=== PATIENT | female | born 1940 | race Caucasian/White ===

== ENCOUNTER 2021-01-07 11:35 | Outpatient (REF) | payer MEDICARE, SELFPAY ==
[2021-01-07 15:00] LABS: CDiff Gene PCR POSITIVE (Negative)
[2021-01-07 15:09] LABS: CDIFF Internal ctrl Dots and bkg OK (V); CDiff Toxin Negative (Negative)
== END 2021-01-07 11:36 | disposition home or self-care (01) ==
LOC: HO.10HDL 11:35
PROVIDERS: Visit Provider Internal Medicine
DX: Z00.01 Encounter for general adult medical examination with abnormal findings (principal); A04.71 Enterocolitis due to Clostridium difficile, recurrent; I10 Essential (primary) hypertension
CPT/HCPCS: 36415; 87324; 87493

== ENCOUNTER 2021-05-20 10:16 | Outpatient (REF) | payer MEDICARE, SELFPAY | END 2021-05-20 10:17 | disposition home or self-care (01) | LOC: HO.10HDL 10:16 | PROVIDERS: Visit Provider Internal Medicine | DX: I10 Essential (primary) hypertension (principal); N30.01 Acute cystitis with hematuria; R10.32 Left lower quadrant pain | CPT/HCPCS: 87086 ==

== ENCOUNTER 2021-06-06 07:14 | Outpatient (REF) | payer MEDICARE, SELFPAY ==
[2021-06-06 07:33] LABS: MANUAL DIFF FLAG NO
[2021-06-06 08:17] LABS: Basophils Percent Auto 0.7 % (0-2); Eosinophils Absolute Auto 0.2 X10*3/uL (0.0-0.4); Eosinophils Percent Auto 3.5 % (0-4); Hematocrit 42.7 % (37.0-47.0); Imm Gran Abs Auto 0.01 X10*3/uL (0.00-0.03); Imm Gran Pct Auto 0.2 % (0.0-0.4); Lymphocytes Absolute Auto 2.4 X10*3/uL (1.2-4.9); Lymphocytes Percent Auto 41.9 % (20-40); Mean Corpuscular HGB Conc 32.8 g/dl (31.0-35.0); Mean Corpuscular Volume 100.7 fL (80.0-98.0); Mean Platelet Volume 10.2 fL (9.4-12.3); Monocytes Absolute Auto 0.6 X10*3/uL (0.1-1.2); Monocytes Percent Auto 9.9 % (2-11); Neutrophils Absolute Auto 2.5 x10*3/uL (2.0-8.3); Neutrophils Percent Auto 43.8 % (45-73); Platelet Count 238 X10*3/uL (160-400); Red Blood Count 4.24 X10*6/uL (4.20-5.50); Red Cell Distribution Width 11.4 % (11.0-16.0); White Blood Count 5.7 X10*3/uL (4.8-10.8)
[2021-06-06 08:45] LABS: Alanine Aminotransferase 17 U/L (0-31); Albumin Level 3.7 g/dL (3.5-5.0); Alkaline Phosphatase 68 U/L (39-117); Anion Gap 10 (12-20); Aspartate Amino Transferase 20 U/L (5-31); Bilirubin Total 0.7 mg/dL (0.0-1.0); Blood Urea Nitrogen 16 mg/dL (9-16); Calcium 9.5 mg/dL (8.4-10.2); Carbon Dioxide 31 mmol/L (22-29); Chloride 106 mmol/L (96-108); Cholesterol 191 mg/dL; Estimated Glomerular Filt Rate > 60; Glucose Random 88 mg/dL (60-115); HDL Cholesterol 51 mg/dL; LDL Cholesterol Calculated 125 mg/dl; Potassium 4.9 mmol/L (3.3-5.1); Sodium 142 mmol/L (135-145); Total Protein 6.9 g/dL (6.5-8.0); Triglycerides 76 mg/dL
== END 2021-06-06 07:15 | disposition home or self-care (01) ==
LOC: HO.LAB 07:14
PROVIDERS: PCP Internal Medicine; Visit Provider Internal Medicine
DX: I12.9 Hypertensive chronic kidney disease with stage 1 through stage 4 chronic kidney disease, or unspecified chronic kidney disease (principal); N18.9 Chronic kidney disease, unspecified
CPT/HCPCS: 36415; 80053; 80061; 85025

== ENCOUNTER 2021-06-10 12:52 | Outpatient (REF) | payer MEDICARE, SELFPAY ==
--- NOTE | ~2021-06-10 | CT_ITS ---
EXAMINATION: CT ABDOMEN AND PELVIS WITH CONTRAST CLINICAL INFORMATION: Left lower quadrant pain. Rule out diverticulitis. COMPARISON: None TECHNIQUE: Multidetector volumetric images were obtained from the superior aspect of the liver through the pubic symphysis following administration 85 mL of Omnipaque 350 intravenous contrast. Sagittal and coronal reformatted images were obtained on the technologist's workstation. Oral contrast: Yes This CT examination was performed using dose optimization techniques as appropriate, variously including the following: *Automated exposure control *Adjustment of mA and/or kV according to patient size (this includes techniques or standardized protocols for targeted exams where dose is matched to indication/reason for exam; i.e. extremities or head) *Use of iterative reconstruction technique DLP: 267 mGy-cm FINDINGS: LUNG BASES: The visualized lung bases are unremarkable. LIVER, GALLBLADDER, AND BILIARY TREE: The liver is normal in size, shape, and attenuation. There is a small 4 mm low-attenuation lesion in the right lobe of the liver. This is difficult to characterize due to small size but may represent a cyst.. No focal other hepatic lesion or biliary ductal dilatation is present. The gallbladder has been removed. PANCREAS: Unremarkable. SPLEEN: Unremarkable. ADRENAL GLANDS: Unremarkable. KIDNEYS AND URETERS: The kidneys are normal in size, shape, and attenuation. No hydronephrosis, hydroureter, or calculi seen. No perinephric stranding. BLADDER: Unremarkable. GASTROINTESTINAL TRACT: There is mild diverticulosis of the colon. No evidence of diverticulitis is seen. The small and large bowel are otherwise unremarkable. The appendix is unremarkable. ABDOMINAL WALL: No significant hernia is appreciated. LYMPH NODES: Normal. VASCULAR: Unremarkable. PELVIC VISCERA: There is a 3 cm right ovarian cyst. Left adnexa is unremarkable. There is low-attenuation seen centrally in the uterus suggestive of endometrial fluid or thickening OSSEOUS STRUCTURES: There are degenerative changes of the spine and hip joints.. CT/CT abdomen pelvis w con IMPRESSION: Diverticulosis of the colon. No evidence of diverticulitis. 3 cm right adnexal cyst. Endometrial fluid or thickening. Follow-up pelvic ultrasound recommended. Fleischner guidelines were followed.
[2021-06-10] MEDS: iohexoL 350 MG/ML 100 ML INFUS..BTL IV (15:26)
== END 2021-06-10 12:53 | disposition home or self-care (01) ==
LOC: HO.CT 12:52
PROVIDERS: PCP Internal Medicine; Visit Provider Internal Medicine
DX: R10.32 Left lower quadrant pain (principal)
CPT/HCPCS: 74177; Q9967

== ENCOUNTER 2021-07-03 09:41 | Outpatient (REF) | payer MEDICARE, SELFPAY ==
[2021-07-04 09:27] LABS: CA 125 New Method 11 U/mL (<35); CA-125 8 U/mL (<35)
== END 2021-07-03 09:42 | disposition home or self-care (01) ==
LOC: HO.10HDL 09:41
PROVIDERS: Visit Provider Internal Medicine
DX: N83.8 Other noninflammatory disorders of ovary, fallopian tube and broad ligament (principal)
CPT/HCPCS: 36415; 86304

== ENCOUNTER 2021-07-24 14:13 | Outpatient (REF) | payer MEDICARE, SELFPAY ==
--- NOTE | ~2021-07-24 | US_ITS ---
EXAMINATION: US PELVIS CLINICAL INFORMATION: Disorder of uterus. Follow-up endometrial thickening or fluid seen on CT scan. COMPARISON: CT of the abdomen and pelvis 06/10/2021 TECHNIQUE: Ultrasound of the pelvis is performed using both transabdominal and transvaginal transducers along with Doppler. Transvaginal imaging is performed due to inadequate visualization transabdominally. FINDINGS: The uterus is anteverted and measures 6.6 x 2.9 x 4 cm in dimension. The endometrium appears thickened measuring 1.3 cm. No focal uterine lesion is seen. The right ovary is seen transabdominally only. The right ovary is enlarged and measures 4.3 x 3.2 x 3.8 cm. There is a 2.8 x 3.3 x 2.8 cm right ovarian cyst. The left ovary is normal-appearing and measures 2 x 1.1 x 1.1 cm. There is no fluid in the pelvis. US/US pelvic and transvaginal IMPRESSION: Abnormally thickened endometrium measuring 1.3 cm. 2.8 x 3.3 x 2.8 cm right ovarian cyst. [employer] consultation recommended.
== END 2021-07-24 14:14 | disposition home or self-care (01) ==
LOC: HO.US 14:13
PROVIDERS: PCP Internal Medicine; Visit Provider Internal Medicine
DX: N83.8 Other noninflammatory disorders of ovary, fallopian tube and broad ligament (principal)
CPT/HCPCS: 76830; 76856

== ENCOUNTER 2021-10-01 06:57 | Outpatient (REF) | payer MEDICARE, SELFPAY ==
[2021-10-01 07:15] LABS: MANUAL DIFF FLAG NO
[2021-10-01 07:44] LABS: Basophils Percent Auto 0.5 % (0-2); Eosinophils Absolute Auto 0.2 X10*3/uL (0.0-0.4); Eosinophils Percent Auto 2.6 % (0-4); Hematocrit 42.6 % (37.0-47.0); Imm Gran Abs Auto 0.01 X10*3/uL (0.00-0.03); Imm Gran Pct Auto 0.2 % (0.0-0.4); Lymphocytes Absolute Auto 2.1 X10*3/uL (1.2-4.9); Lymphocytes Percent Auto 37.5 % (20-40); Mean Corpuscular HGB Conc 32.9 g/dl (31.0-35.0); Mean Corpuscular Hemoglobin 32.6 pg (27.0-33.0); Mean Corpuscular Volume 99.1 fL (80.0-98.0); Monocytes Absolute Auto 0.6 X10*3/uL (0.1-1.2); Monocytes Percent Auto 10.4 % (2-11); Neutrophils Absolute Auto 2.8 x10*3/uL (2.0-8.3); Neutrophils Percent Auto 48.8 % (45-73); Platelet Count 153 X10*3/uL (160-400); Red Cell Distribution Width 11.4 % (11.0-16.0); White Blood Count 5.7 X10*3/uL (4.8-10.8)
[2021-10-01 08:36] LABS: Alanine Aminotransferase 15 U/L (0-31); Alkaline Phosphatase 77 U/L (39-117); Anion Gap 10 (12-20); Aspartate Amino Transferase 19 U/L (5-31); Bilirubin Total 0.7 mg/dL (0.0-1.0); Blood Urea Nitrogen 18 mg/dL (9-16); Calcium 9.4 mg/dL (8.4-10.2); Carbon Dioxide 28 mmol/L (22-29); Chloride 107 mmol/L (96-108); Cholesterol 182 mg/dL; Estimated Glomerular Filt Rate 55; Glucose Random 90 mg/dL (60-115); HDL Cholesterol 56 mg/dL; LDL Cholesterol Calculated 110 mg/dl; Potassium 4.2 mmol/L (3.3-5.1); Sodium 141 mmol/L (135-145); Total Protein 7.1 g/dL (6.5-8.0); Triglycerides 80 mg/dL
== END 2021-10-01 06:58 | disposition home or self-care (01) ==
LOC: HO.LAB 06:57
PROVIDERS: PCP Internal Medicine; Visit Provider Internal Medicine
DX: I12.9 Hypertensive chronic kidney disease with stage 1 through stage 4 chronic kidney disease, or unspecified chronic kidney disease (principal); N18.9 Chronic kidney disease, unspecified
CPT/HCPCS: 36415; 80053; 80061; 85025

== ENCOUNTER 2021-12-21 09:00 | Outpatient (REF) | payer MEDICARE, SELFPAY ==
[2021-12-21 12:50] LABS: CDiff Gene PCR NEGATIVE (Negative)
== END 2021-12-21 09:01 | disposition home or self-care (01) ==
LOC: HO.LNP 09:00
PROVIDERS: Visit Provider Internal Medicine
DX: R19.7 Diarrhea, unspecified (principal)
CPT/HCPCS: 87493

== ENCOUNTER 2022-10-08 09:42 | Outpatient (REF) | payer MEDICARE, SELFPAY | END 2022-10-08 09:43 | disposition home or self-care (01) | LOC: HO.LAB 09:42 | PROVIDERS: PCP Internal Medicine; Visit Provider Internal Medicine | DX: I10 Essential (primary) hypertension (principal) | CPT/HCPCS: 36415; 80053 ==

== ENCOUNTER 2023-01-07 06:53 | Outpatient (REF) | payer MEDICARE, SELFPAY ==
[2023-01-07 07:02] LABS: MANUAL DIFF FLAG NO
[2023-01-07 07:21] LABS: Basophils Percent Auto 0.5 % (0-2); Eosinophils Absolute Auto 0.2 X10*3/uL (0.0-0.4); Eosinophils Percent Auto 2.6 % (0-4); Hematocrit 39.8 % (37.0-47.0); Hemoglobin 13.2 g/dl (12.0-16.0); Imm Gran Abs Auto 0.02 X10*3/uL (0.00-0.03); Imm Gran Pct Auto 0.3 % (0.0-0.4); Lymphocytes Absolute Auto 2.1 X10*3/uL (1.2-4.9); Mean Corpuscular HGB Conc 33.2 g/dl (31.0-35.0); Mean Corpuscular Hemoglobin 33.1 pg (27.0-33.0); Mean Corpuscular Volume 99.7 fL (80.0-98.0); Mean Platelet Volume 9.5 fL (9.4-12.3); Monocytes Absolute Auto 0.7 X10*3/uL (0.1-1.2); Monocytes Percent Auto 11.6 % (2-11); Neutrophils Absolute Auto 2.8 x10*3/uL (2.0-8.3); Platelet Count 177 X10*3/uL (160-400); Red Blood Count 3.99 X10*6/uL (4.20-5.50); Red Cell Distribution Width 11.4 % (11.0-16.0); White Blood Count 5.8 X10*3/uL (4.8-10.8)
[2023-01-07 08:15] LABS: Alanine Aminotransferase 12 U/L (0-31); Albumin Level 3.8 g/dL (3.5-5.0); Alkaline Phosphatase 61 U/L (39-117); Anion Gap 9 (12-20); Aspartate Amino Transferase 19 U/L (5-31); Bilirubin Total 0.5 mg/dL (0.0-1.0); Blood Urea Nitrogen 15 mg/dL (9-16); Calcium 9.4 mg/dL (8.4-10.2); Carbon Dioxide 28 mmol/L (22-29); Chloride 108 mmol/L (96-108); Cholesterol 181 mg/dL (<200); Estimated Glomerular Filt Rate > 60; Glucose Random 86 mg/dL (60-115); HDL Cholesterol 60 mg/dL (>40); LDL Cholesterol Calculated 108 mg/dL (<100); Potassium 4.2 mmol/L (3.3-5.1); Sodium 141 mmol/L (135-145); Total Protein 6.6 g/dL (6.5-8.0); Triglycerides 67 mg/dL (<150)
[2023-01-07 08:33] LABS: Vitamin D 25-OH Total 20.5 ng/mL (>30)
== END 2023-01-07 06:54 | disposition home or self-care (01) ==
LOC: HO.LAB 06:53
PROVIDERS: PCP Internal Medicine; Visit Provider Internal Medicine
DX: I10 Essential (primary) hypertension (principal); M81.8 Other osteoporosis without current pathological fracture; N64.4 Mastodynia
CPT/HCPCS: 36415; 80053; 80061; 82306; 85025

== ENCOUNTER 2023-07-13 06:50 | Outpatient (REF) | payer MEDICARE, SELFPAY ==
[2023-07-13 08:00] LABS: Alanine Aminotransferase 14 U/L (0-31); Albumin Level 3.7 g/dL (3.5-5.0); Alkaline Phosphatase 65 U/L (39-117); Anion Gap 9 (12-20); Aspartate Amino Transferase 19 U/L (5-31); Bilirubin Total 0.7 mg/dL (0.0-1.0); Blood Urea Nitrogen 21 mg/dL (9-16); Calcium 9.2 mg/dL (8.4-10.2); Carbon Dioxide 29 mmol/L (22-29); Chloride 108 mmol/L (96-108); Estimated Glomerular Filt Rate > 60; Glucose Random 86 mg/dL (60-115); Potassium 4.2 mmol/L (3.3-5.1); Sodium 142 mmol/L (135-145); Total Protein 7.1 g/dL (6.5-8.0)
== END 2023-07-13 06:51 | disposition home or self-care (01) ==
LOC: HO.LAB 06:50
PROVIDERS: PCP Internal Medicine; Visit Provider Internal Medicine
DX: E55.9 Vitamin D deficiency, unspecified (principal); I10 Essential (primary) hypertension
CPT/HCPCS: 36415; 80053

== ENCOUNTER 2024-01-13 06:21 | Outpatient (REF) | payer MEDICARE, SELFPAY ==
[2024-01-13 09:56] LABS: MANUAL DIFF FLAG NO
[2024-01-13 10:12] LABS: Basophils Percent Auto 0.5 % (0-2); Eosinophils Absolute Auto 0.2 X10*3/uL (0.0-0.4); Eosinophils Percent Auto 3.5 % (0-4); Hematocrit 40.1 % (37.0-47.0); Hemoglobin 13.1 g/dl (12.0-16.0); Imm Gran Abs Auto 0.01 X10*3/uL (0.00-0.03); Imm Gran Pct Auto 0.2 % (0.0-0.4); Lymphocytes Absolute Auto 2.4 X10*3/uL (1.2-4.9); Lymphocytes Percent Auto 42.6 % (20-40); Mean Corpuscular HGB Conc 32.7 g/dl (31.0-35.0); Mean Corpuscular Hemoglobin 32.8 pg (27.0-33.0); Mean Corpuscular Volume 100.5 fL (80.0-98.0); Mean Platelet Volume 10.4 fL (9.4-12.3); Monocytes Absolute Auto 0.7 X10*3/uL (0.1-1.2); Monocytes Percent Auto 11.8 % (2-11); Neutrophils Absolute Auto 2.4 x10*3/uL (2.0-8.3); Neutrophils Percent Auto 41.4 % (45-73); Platelet Count 185 X10*3/uL (160-400); Red Blood Count 3.99 X10*6/uL (4.20-5.50); Red Cell Distribution Width 11.9 % (11.0-16.0); White Blood Count 5.7 X10*3/uL (4.8-10.8)
[2024-01-13 10:23] LABS: Alanine Aminotransferase 17 U/L (0-31); Albumin Level 3.8 g/dL (3.5-5.0); Alkaline Phosphatase 64 U/L (39-117); Anion Gap 10 (12-20); Aspartate Amino Transferase 20 U/L (5-31); Bilirubin Total 0.5 mg/dL (0.0-1.0); Blood Urea Nitrogen 15 mg/dL (9-16); Calcium 9.3 mg/dL (8.4-10.2); Carbon Dioxide 28 mmol/L (22-29); Chloride 110 mmol/L (96-108); Cholesterol 169 mg/dL (<200); Estimated Glomerular Filt Rate > 60; Glucose Random 81 mg/dL (60-115); HDL Cholesterol 58 mg/dL (>40); LDL Cholesterol Calculated 98 mg/dL (<100); Sodium 144 mmol/L (135-145); Total Protein 6.7 g/dL (6.5-8.0); Triglycerides 66 mg/dL (<150)
[2024-01-13 10:45] LABS: Vitamin D 25-OH Total 64.6 ng/mL (>30)
== END 2024-01-13 06:22 | disposition home or self-care (01) ==
LOC: HO.HMGCLDS 06:21
PROVIDERS: PCP Internal Medicine; Visit Provider Internal Medicine
DX: E55.9 Vitamin D deficiency, unspecified (principal); I10 Essential (primary) hypertension; R45.4 Irritability and anger; Z68.23 Body mass index [BMI] 23.0-23.9, adult; Z74.8 Other problems related to care provider dependency
CPT/HCPCS: 36415; 80053; 80061; 82306; 85025

== ENCOUNTER 2024-07-08 07:18 | Outpatient (REF) | payer MEDICARE, SELFPAY ==
[2024-07-08 10:12] LABS: MANUAL DIFF FLAG NO
[2024-07-08 10:17] LABS: Basophils Percent Auto 0.4 % (0-2); Eosinophils Absolute Auto 0.2 X10*3/uL (0.0-0.4); Eosinophils Percent Auto 2.8 % (0-4); Hematocrit 39.1 % (37.0-47.0); Imm Gran Abs Auto 0.01 X10*3/uL (0.00-0.03); Imm Gran Pct Auto 0.2 % (0.0-0.4); Lymphocytes Absolute Auto 1.7 X10*3/uL (1.2-4.9); Lymphocytes Percent Auto 29.9 % (20-40); Mean Corpuscular HGB Conc 33.2 g/dl (31.0-35.0); Mean Corpuscular Volume 99.2 fL (80.0-98.0); Mean Platelet Volume 10.3 fL (9.4-12.3); Monocytes Absolute Auto 0.5 X10*3/uL (0.1-1.2); Monocytes Percent Auto 9.3 % (2-11); Neutrophils Absolute Auto 3.3 x10*3/uL (2.0-8.3); Neutrophils Percent Auto 57.4 % (45-73); Platelet Count 185 X10*3/uL (160-400); Red Blood Count 3.94 X10*6/uL (4.20-5.50); Red Cell Distribution Width 11.6 % (11.0-16.0); White Blood Count 5.7 X10*3/uL (4.8-10.8)
[2024-07-08 11:10] LABS: Folate 13.3 ng/mL (> or = 4.0); Vitamin B12 499 pg/mL (200-900)
[2024-07-08 11:15] LABS: Alanine Aminotransferase 17 U/L (0-31); Albumin Level 3.8 g/dL (3.5-5.0); Alkaline Phosphatase 70 U/L (39-117); Anion Gap 11 (12-20); Aspartate Amino Transferase 25 U/L (5-31); Bilirubin Total 0.6 mg/dL (0.0-1.0); Blood Urea Nitrogen 19 mg/dL (9-16); Calcium 9.3 mg/dL (8.4-10.2); Carbon Dioxide 24 mmol/L (22-29); Chloride 112 mmol/L (96-108); Estimated Glomerular Filt Rate > 60; Glucose Random 90 mg/dL (60-115); Potassium 4.3 mmol/L (3.3-5.1); Sodium 143 mmol/L (135-145); Total Protein 6.7 g/dL (6.5-8.0)
== END 2024-07-08 07:19 | disposition home or self-care (01) ==
LOC: HO.HMGCLDS 07:18
PROVIDERS: PCP Internal Medicine; Visit Provider Internal Medicine
DX: I10 Essential (primary) hypertension (principal); Z13.31 Encounter for screening for depression; Z68.24 Body mass index [BMI] 24.0-24.9, adult
CPT/HCPCS: 36415; 80053; 82607; 82746; 85025

== ENCOUNTER 2024-11-04 07:45 | Outpatient (REF) | payer MEDICARE, SELFPAY ==
--- OUTSIDE RECORDS SUMMARY | 2024-11-04 07:47 | XMS_ITS | Clinical Summary ---
Author Organization [facility] Address [address] [place] [address] Phone Care Team Providers Care Director Of Partner Marketing Name Role Phone Yelena García MD Primary Care Provider [phone] Allergies No known active allergies Medications lisinopriL (PRINIVIL,ZEST RIL) 10 mg tablet Take 1 tablet (10 mg total) by mouth 1 (one) time each day. 5 Active omeprazole (PriLOSEC) [address] capsule Take 1 capsule (20 mg total) by mouth 1 (one) time each day if needed (ACID REFLUX). 5 Active cetirizine (ZyrTEC) 10 mg tablet Take 1 tablet (10 mg total) by mouth 1 (one) time each day. Active acetaminophen (TYLENOL) 325 mg tablet Take 2 tablets (650 mg total) by mouth every 6 (six) hours if needed for mild pain, fever - temperature GREATER than 38 C (100.4 F) or headaches for up to 10 days. 30 tablet 5 11/10/19 25 Active hydroCHLOROthi azide (HYDRODIURIL) 25 mg tablet Take 1 tablet (25 mg total) by mouth 1 (one) time each day in the morning. 5 10/31/19 25 Discontin ued(Stop Taking at Discharge ) Active Problems Problem Noted Date Diagnosed Date Acute hyponatremia 10/27/2024 Encounters Date Type Department Care Team Description 10/27/2024 10:41 AM EDT - 10/30/2024 11:10 AM EDT Hospital Encounter [facility] [address] [place] [address] Dylan Daugherty MD Flores, Carlos M, MD Rasul, Yar M, MD Acute hyponatremia (Primary Dx) Discharge Disposition: [place] [facility] [place] 2:39 PM EDT - 09/28/2024 6:40 PM EDT Emergency [facility] [address] [place] [address] Nannette Mcdonald DO Chest pain, unspecified type (Primary Dx) Discharge Disposition: Home or Self Care from Last 3 Months Medical History Medical History Date Comments Hypertension Social History Tobacco Use Types Packs/Day Years Used Date Smoking Tobacco: Never Passive Smoke Exposure: Never Smokeless Tobacco: Never Tobacco Cessation:Counseling Given: No Alcohol Use Standard Drinks/Week Comments Never 0 (1 standard drink = 0.6 oz pur e alcohol) Interpersonal Safety Answer Date Record ed Physical Abuse 10/27/2024 Verbal Abuse 10/27/2024 Comments Unknown Sex and Gender Information Value Date Recorded Sex Assigned at Not on file Legal Sex Female 5:20 PM EST Gender Identity Not on file Sexual Orientation Not on file Obstetrics History Last Filed Vital Signs Vital Sign Reading Time Taken Comments Blood Pressure 120/59 10/30/2024 9:18 AM EDT Pulse 88 10/30/2024 9:18 AM EDT Temperature 36.4 C (97.5 F) 10/30/2024 6:44 AM EDT Respiratory Rate 16 10/30/2024 6:44 AM EDT Oxygen Saturation 98% 10/30/2024 6:44 AM EDT Inhaled Oxygen Concentration - - Weight 59.2 kg (130 lb 9.6 oz) 10/30/2024 6:00 A M EDT Height 160 cm (5' 2.99 ) 10/27/2024 3:23 PM EDT Body Mass Index 23.14 10/27/2024 3:23 PM EDT Plan of Treatment Health Maintenance Due Date Last Done Comments DTaP,Tdap,and Td Vaccines (1 - Tdap) 11/02/1959 Pneumococcal Vaccine: 50+ Years (1 of 2 - PCV) 11/02/1959 Zoster Vaccines (1 of 2) 1990 RSV Immunization Adult Patients (1 - 1-dose 75+ series) 11/02/2015 Cholesterol Screening (Lipid Panel) 03/08/2022 Medicare Annual Wellness Visit 03/08/2022 Osteoporosis Screening (Bone Density Screening) 03/08/2022 Social Influencers of Health Screening 03/08/2022 COVID-19 Vaccine ( season) 2023 Depression Screening 04/06/2024 Influenza Vaccine (#1) 2024 Falls Risk Assessment 10/30/2025 10/30/2024 Hypertension/CHF/CAD Annual BMP Blood Test 10/30/2025 10/30/2024, 10/28/2024, 10/27/2024, Additional history exists HIB Vaccines Aged Out No longer eligi ble based on patient's age to complete this topic HPV Vaccines Aged Out No longer eligi ble based on patient's age to complete this topic Hepatitis A Vaccines Aged Out No long er eligible based on patient's age to complete this topic Hepatitis B Vaccines Aged Out No long er eligible based on patient's age to complete this topic IPV Vaccines Aged Out No longer eligi ble based on patient's age to complete this topic MMR Vaccines Aged Out No longer eligi ble based on patient's age to complete this topic Meningococcal ACWY Vaccine Aged Out N o longer eligible based on patient's age to complete this topic Meningococcal B Vaccine Aged Out No l onger eligible based on patient's age to complete this topic RSV Immunization Patients Under 20 months Aged Out No longer eligible based on patient's age to complete this topic Varicella Vaccines Aged Out No longer eligible based on patient's age to complete this topic Procedures Procedure Name Priority Date/Time Associated Diagnosis Comments ECG ANNOTATED 10/31/2024 LAVENDER - EDTA Routine 10/30/2024 5:31 AM EDT EXTRA TUBES Routine 10/30/2024 5:31 AM EDT BASIC METABOLIC PANEL Routine 10/30/2024 5:31 AM EDT LAVENDER - EDTA Routine 10/29/2024 5:46 AM EDT EXTRA TUBES Routine 10/29/2024 5:46 AM EDT ELECTROLYTE PANEL Timed 10/29/2024 5:4 6 AM EDT ELECTROLYTE PANEL Timed 10/29/2024 12: 03 AM EDT ELECTROLYTE PANEL Timed 10/28/2024 5:5 8 PM EDT ELECTROLYTE PANEL Timed 10/28/2024 12: 00 PM EDT CBC WITH AUTO DIFFERENTIAL Routine 10/28/2024 6:25 AM EDT CBC AND DIFFERENTIAL Routine 10/28/2024 6:25 AM EDT MAGNESIUM Routine 10/28/2024 6:25 AM EDT BASIC METABOLIC PANEL Routine 10/28/2024 6:25 AM EDT ELECTROLYTE PANEL Timed 10/28/2024 12: 25 AM EDT ELECTROLYTE PANEL Timed 10/27/2024 6:1 3 PM EDT ELECTROLYTE PANEL Timed 10/27/2024 3:1 0 PM EDT OSMOLALITY, URINE STAT 10/27/2024 2:3 3 PM EDT SODIUM, URINE, RANDOM Routine 10/27/2024 2:33 PM EDT TROPONIN I HIGH SENSITIVITY Timed 10/27/2024 12:11 PM EDT XR CHEST 2 VIEWS STAT 10/27/2024 12:0 7 PM EDT GREEN URINE CULTURE TUBE STAT 10/27/2024 11:37 AM EDT URINALYSIS WITH REFLEX MICROSCOPIC AND CULTURE STAT 10/27/2024 11:37 AM EDT URINALYSIS WITH REFLEX MICROSCOPIC AND CULTURE STAT 10/27/2024 11:37 AM EDT CULTURE URINE STAT 10/27/2024 11:[address] CERVICAL SPINE WO CONTRAST STAT 10/27/2024 11:[address] HEAD WO CONTRAST STAT 10/27/2024 1 1:17 AM EDT OSMOLALITY STAT Add-on 10/27/2024 11:14 AM EDT CORTISOL Add-On 10/27/2024 11:14 AM EDT THYROID STIMULATING HORMONE Add-On 10/27/2024 11:14 AM EDT URIC ACID Add-On 10/27/2024 11:14 AM EDT CBC WITH AUTO DIFFERENTIAL STAT 10/27/2024 11:14 AM EDT TROPONIN I HIGH SENSITIVITY Timed 10/27/2024 11:14 AM EDT MAGNESIUM STAT 10/27/2024 11:14 AM EDT BASIC METABOLIC PANEL STAT 10/27/2024 11:14 AM EDT CBC AND DIFFERENTIAL STAT 10/27/2024 11:14 AM EDT POCT GLUCOSE BLOOD Routine 10/27/2024 11 :13 AM EDT ECG ANNOTATED 09/29/2024 TROPONIN I HIGH SENSITIVITY STAT 09/28/2024 5:07 PM EDT ECG 12-LEAD STAT 09/28/2024 5:04 PM EDT XR CHEST 2 VIEWS STAT 09/28/2024 3:30 PM EDT CBC WITH AUTO DIFFERENTIAL STAT 09/28/2024 3:21 PM EDT B-TYPE NATRIURETIC PEPTIDE STAT 09/28/2024 3:21 PM EDT MAGNESIUM STAT 09/28/2024 3:21 PM EDT LIPASE STAT 09/28/2024 3:21 PM EDT COMPREHENSIVE METABOLIC PANEL STAT 09/28/2024 3:21 PM EDT CBC AND DIFFERENTIAL STAT 09/28/2024 3:21 PM EDT TROPONIN I HIGH SENSITIVITY STAT 09/28/2024 3:21 PM EDT ECG 12-LEAD STAT 09/28/2024 2:57 PM EDT from Last 3 Months Results * ECG-Annotated (10/31/2024) Only the most recent of2 resultswithin the time period is included. us Provider Onbase ECG ORDERABLES Final Result * Lavender tube (10/30/2024 5:31 AM EDT) Only the most recent of2 resultswithin the time period is included. Extra Tube Hold for add-ons. 10/30/2024 8:01 AM EDT [facility] Comment:Auto resulted. Blood Venous blood specimen / Unknown Venipuncture / Unknown 10/30/2024 5:31 AM EDT 10/30/2024 6:12 AM EDT Chalino Valdez MD LAB BLOOD ORDERABLES Final Resul t [facility] [address] [place] [address], [place] [phone] * (ABNORMAL) Basic metabolic panel (10/30/2024 5:31 AM EDT) Only the most recent of3 resultswithin the time period is included. Sodium 132(L) 133 - 145 mmol/L LAB CHEMISTRY METHOD 10/30/2024 6:52 AM [facility] Potassium 3.8 3.5 - 5.5 mmol/L LAB CHEMISTRY METHOD 10/30/2024 6:52 AM [facility] Chloride 96 96 - 110 mmol/L LAB CHEMISTRY METHOD 10/30/2024 6:52 AM [facility] CO2 30 21 - 32 mmol/L LAB CHEMISTRY METHOD 10/30/2024 6:52 AM [facility] Anion Gap 6 3 - 11 LAB CHEMISTRY METHOD 10/30/2024 6:52 AM [facility] Glucose 91 70 - 100 mg/dL LAB CHEMISTRY METHOD 10/30/2024 6:52 AM [facility] BUN 24 5 - 25 mg/dL LAB CHEMISTRY METHOD 10/30/2024 6:52 AM [facility] Creatinine 0.96 0.50 - 1.10 mg/dL LAB CHEMISTRY METHOD 10/30/2024 6:52 AM [facility] eGFR 59(L) >=60 mL/min/1. 73m2 LAB CHEMISTRY METHOD 10/30/2024 6:52 AM [facility] Comment:Calculation based on the Chronic Kidney Disease Epidemiology Collaboration (CKD-EPI) equation refit without adjustment for race. BUN/Creatinine Ratio 25.0 LAB CHEMISTRY METHOD 10/30/2024 6:52 AM [facility] Calcium 9.3 8.5 - 10.5 mg/dL LAB CHEMISTRY METHOD 10/30/2024 6:52 AM [facility] Blood Venous blood specimen / Unknown Venipuncture / Unknown 10/30/2024 5:31 AM EDT 10/30/2024 6:11 AM EDT us Chalino Valdez MD LAB BLOOD ORDERABLES Final Resul t Performing Organization Address [facility] [address]/ZIP Co de Phone Number [facility] [address] [place] [address], [place] [phone] * (ABNORMAL) Electrolyte panel (10/29/2024 5:46 AM EDT) Only the most recent of7 resultswithin the time period is included. Pathologist [facility] Sodium 130(L) 133 - 145 mmol/L LAB CHEMISTRY METHOD 10/29/2024 7:14 AM EDT [facility] Potassium 3.9 3.5 - 5.5 mmol/L LAB CHEMISTRY METHOD 10/29/2024 7:14 AM EDT [facility] Chloride 94(L) 96 - 110 mmol/L LAB CHEMISTRY METHOD 10/29/2024 7:14 AM EDT [facility] CO2 30 21 - 32 mmol/L LAB CHEMISTRY METHOD 10/29/2024 7:14 AM EDT [facility] Anion Gap 6 3 - 11 LAB CHEMISTRY METHOD 10/29/2024 7:14 AM EDT [facility] Blood Venous blood specimen / Unknown Venipuncture / Unknown 10/29/2024 5:46 AM EDT 10/29/2024 6:28 AM EDT Jamir Ch MD LAB BLOOD ORDERABLES Final Re sult Performing Organization Address City/[facility] [address]/ZIP Co de Phone Number [facility] [address] [place] [address], [place] [phone] * (ABNORMAL) CBC auto differential (10/28/2024 6:25 AM EDT) Only the most recent of3 resultswithin the time period is included. Pathologist [facility] WBC 8.1 4.8 - 10.8 K/mcL LAB HEMETOLOGY METHOD 10/28/2024 7:03 AM EDT [facility] RBC 3.90 3.80 - 4.80 M/mcL LAB HEMETOLOGY METHOD 10/28/2024 7:03 AM [facility] Hemoglobin 12.5 11.5 - 16.0 g/dL LAB HEMETOLOGY METHOD 10/28/2024 7:03 AM [facility] Hematocrit 34.8(L) 35.0 - 47.0 % LAB HEMETOLOGY METHOD 10/28/2024 7:03 AM [facility] MCV 88.5 79.0 - 98.0 FL LAB HEMETOLOGY METHOD 10/28/2024 7:03 AM [facility] MCH 31.8 27.0 - 32.0 pcg LAB HEMETOLOGY METHOD 10/28/2024 7:03 AM [facility] MCHC 35.9 32.0 - 37.0 g/dL LAB HEMETOLOGY METHOD 10/28/2024 7:03 AM [facility] RDW 10.9(L) 11.0 - 15.0 % LAB HEMETOLOGY METHOD 10/28/2024 7:03 AM [facility] Platelets 224 130 - 400 K/mcL LAB HEMETOLOGY METHOD 10/28/2024 7:03 AM [facility] MPV 8.5 7.0 - 11.0 FL LAB HEMETOLOGY METHOD 10/28/2024 7:03 AM [facility] NRBC 0.0 <1.0 % LAB HEMETOLOGY METHOD 10/28/2024 7:03 AM [facility] NRBC Absolute 0.00 <0.10 K/mcL LAB HEMETOLOGY METHOD 10/28/2024 7:03 AM [facility] Neutrophils Relative 60.7 % LAB HEMETOLOGY METHOD 10/28/2024 7:03 AM [facility] Lymphocytes Relative 25.5 % LAB HEMETOLOGY METHOD 10/28/2024 7:03 AM [facility] Monocytes Relative 13.2 % LAB HEMETOLOGY METHOD 10/28/2024 7:03 AM [facility] Eosinophils Relative 0.2 % LAB HEMETOLOGY METHOD 10/28/2024 7:03 AM [facility] Basophils Relative 0.2 % LAB HEMETOLOGY METHOD 10/28/2024 7:03 AM [facility] Immature Granulocytes Relative 0.2 % LAB HEMETOLOGY METHOD 10/28/2024 7:03 AM [facility] Neutrophils Absolute 4.90 1.50 - 7.00 K/mcL LAB HEMETOLOGY METHOD 10/28/2024 7:03 AM [facility] Lymphocytes Absolute 2.06 1.00 - 5.00 K/mcL LAB HEMETOLOGY METHOD 10/28/2024 7:03 AM [facility] Monocytes Absolute 1.07(H) 0.20 - 1.00 K/mcL LAB HEMETOLOGY METHOD 10/28/2024 7:03 AM [facility] Eosinophils Absolute 0.02 0.00 - 0.50 K/mcL LAB HEMETOLOGY METHOD 10/28/2024 7:03 AM [facility] Basophils Absolute 0.02 0.00 - 0.20 K/mcL LAB HEMETOLOGY METHOD 10/28/2024 7:03 AM [facility] Immature Granulocytes Absolute 0.02 0.00 - 0.03 K/mcL LAB HEMETOLOGY METHOD 10/28/2024 7:03 AM [facility] Blood Venous blood specimen / Unknown Venipuncture / Unknown 10/28/2024 6:25 AM EDT 10/28/2024 6:44 AM EDT us Jamir Ch MD LAB BLOOD ORDERABLES Final Re sult Performing Organization Address [facility] [address]/ZIP Co de Phone Number [facility] [address] [place] [address], [place] [phone] * Magnesium (10/28/2024 6:25 AM EDT) Only the most recent of3 resultswithin the time period is included. Magnesium 2.1 1.9 - 2.6 mg/dL LAB CHEMISTRY METHOD 10/28/2024 7:43 AM EDT [facility] Blood Venous blood specimen / Unknown Venipuncture / Unknown 10/28/2024 6:25 AM EDT 10/28/2024 6:44 AM EDT us Jamir Ch MD LAB BLOOD ORDERABLES Final Re sult Performing Organization Address [facility] [address]/[facility] Co de Phone Number [facility] [address] [place] [address], [place] [phone] * Sodium, urine, random (10/27/2024 2:33 PM EDT) [facility] Sodium, Ur 25 mmol/L LAB CHEMISTRY METHOD 10/27/2024 3:14 PM EDT [facility] Urine Urine specimen obtained by clean catch procedure / Unknown Non-blood Collection / Unknown 10/27/2024 2:33 PM EDT 10/27/2024 2:38 PM EDT us Jamir Ch MD LAB URINE ORDERABLES Final Re sult Performing Organization Address [facility] [address]/[facility] Co de Phone Number [facility] [address] [place] [address], [place] [phone] * Osmolality, urine (10/27/2024 2:33 PM EDT) Osmolality, Urine 300 300 - 1,300 mOsm/kg LAB CHEMISTRY METHOD 10/27/2024 4:58 PM EDT [facility] Urine Urine specimen obtained by clean catch procedure / Unknown Non-blood Collection / Unknown 10/27/2024 2:33 PM EDT 10/27/2024 2:38 PM EDT us Dylan Daugherty MD LAB URINE ORDERABLES Final Resul t Performing Organization Address City/[facility] [address]/ZIP Co de Phone Number [facility] [address] [place] [address], [place] [phone] * Troponin I high sensitivity (10/27/2024 12:11 PM EDT) Only the most recent of4 resultswithin the time period is included. High Sensitivity Troponin I 8 <=54 ng/L LAB CHEMISTRY METHOD 10/27/2024 12:52 PM EDT [facility] Blood Venous blood specimen / Unknown Venipuncture / Unknown 10/27/2024 12:11 PM EDT 10/27/2024 12:16 PM EDT Narrative [facility] - 10/27/2024 12:52 PM EDT High levels of biotin in samples may falsely decrease hsTroponin values. Use caution when interpreting hsTroponin results in patients taking biotin who exhibit renal impairment (eGFR <60) or in patients taking more than 20 mg/day of biotin. us Dylan Daugherty MD LAB BLOOD ORDERABLES Final Resul t Performing Organization Address City/[facility] [address]/ZIP Co de Phone Number [facility] [address] [place] [address], [place] [phone] * XR Chest 2 Views (10/27/2024 12:07 PM EDT) Only the most recent of2 resultswithin the time period is included. Anatomical Region Laterality Modality Body Radiographic Celi ging 10/27/2024 12:1 3 PM EDT Impressions 10/27/2024 12:15 PM EDT No acute pulmonary disease. Findings as above consistent with COPD. No change since 09/28/2024. Code 39388 -------- FINAL REPORT -------- Dictated By: Miguelito Burgess Dictated Date: 10/27/2024 12:13 ET Assigned Physician: Miguelito Burgess Reviewed and Electronically Signed By: Miguelito Burgess Signed Date: 10/27/2024 12:15 ET Workstation ID: [id number] Transcribed By: Self Edit Transcribed Date: 10/27/2024 12:13 ET Narrative 10/27/2024 12:15 PM EDT HISTORY: The patient is an 83-year-old female former smoker presenting with dizziness and fall. FINDINGS: PA and lateral radiographs of the chest demonstrate degenerative changes of the thoracic spine as also seen on the prior study performed 09/28/2024. The cardiac silhouette is within normal limits. The aortic knob is calcified. The lungs are again seen to be mildly hyperinflated with flattening of the diaphragm consistent with chronic obstructive pulmonary disease. There is no consolidation, mass, pulmonary vascular congestion, or pleural effusion. Surgical clips are again seen in the upper abdomen, included only on the lateral view. Procedure Note Miguelito Burgess MD - 10/27/2024 HISTORY: The patient is an 83-year-old female former smoker presentingwith dizziness and fall. FINDINGS: PA and lateral radiographs of the chest demonstrate degenerativechanges of the thoracic spine as also seen on the prior study performed09/28/2024. The cardiac silhouette is within normal limits. The aortic knobis calcified. The lungs are again seen to be mildly hyperinflated withflattening of the diaphragm consistent with chronic obstructive pulmonarydisease. There is no consolidation, mass, pulmonary vascular congestion,or pleural effusion. Surgical clips are again seen in the upper abdomen, included only on thelateral view. IMPRESSION: No acute pulmonary disease. Findings as above consistent with COPD. Nochange since 09/28/2024. Code 46761 -------- FINAL REPORT -------- Dictated By: Miguelito Burgess Dictated Date: 10/27/2024 12:13 ET Assigned Physician: Miguelito Burgess Reviewed and Electronically Signed By: Miguelito Burgess Signed Date: 10/27/2024 12:15 ET Workstation ID: [id number] Transcribed By: Self Edit Transcribed Date: 10/27/2024 12:13 ET Dylan Daugherty MD IMG XR PROCEDURES Final Result * (ABNORMAL) Urinalysis with reflex microscopic and culture (10/27/2024 11:37 AM EDT) Specific [place] Urine 1.012 1.003 - 1.030 LAB URINALYSIS - AUTOMATED METHOD 10/27/2024 12:25 PM [facility] pH, Urine 6.5 5.0 - 8.0 pH LAB URINALYSIS - AUTOMATED METHOD 10/27/2024 12:25 PM [facility] Leukocytes, Urine Trace(A) Negative LAB URINALYSIS - AUTOMATED METHOD 10/27/2024 12:25 PM [facility] Nitrite, Urine Negative Negative LAB URINALYSIS - AUTOMATED METHOD 10/27/2024 12:25 PM [facility] Protein, Urine Negative <=Trace mg/dL LAB URINALYSIS - AUTOMATED METHOD 10/27/2024 12:25 PM [facility] Glucose, Urine Negative Negative mg/dL LAB URINALYSIS - AUTOMATED METHOD 10/27/2024 12:25 PM [facility] Ketones, Urine Negative Negative mg/dL LAB URINALYSIS - AUTOMATED METHOD 10/27/2024 12:25 PM [facility] Urobilinogen, Urine 0.2 0.2 - 1.0 mg/dL LAB URINALYSIS - AUTOMATED METHOD 10/27/2024 12:25 PM [facility] Bilirubin, Urine Negative Negative LAB URINALYSIS - AUTOMATED METHOD 10/27/2024 12:25 PM [facility] Blood, Urine Small(A) Negative LAB URINALYSIS - AUTOMATED METHOD 10/27/2024 12:25 PM [facility] RBC, Urine 7.9(H) 0 - 4 /HPF LAB URINALYSIS - AUTOMATED METHOD 10/27/2024 12:25 PM EDT [facility] WBC, Urine 4.0 0 - 4 /HPF LAB URINALYSIS - AUTOMATED METHOD 10/27/2024 12:25 PM EDT [facility] Squamous Epithelial, Urine >100(H) 0 - 60 /LPF LAB URINALYSIS - AUTOMATED METHOD 10/27/2024 12:25 PM EDT [facility] Bacteria, Urine Negative Negative /HPF LAB URINALYSIS - AUTOMATED METHOD 10/27/2024 12:25 PM EDT [facility] Hyaline Casts, Urine 1.6 0 - 3 /LPF LAB URINALYSIS - AUTOMATED METHOD 10/27/2024 12:25 PM EDT [facility] Urine Urine specimen obtained by clean catch procedure / Unknown Non-blood Collection / Unknown 10/27/2024 11:37 AM EDT 10/27/2024 12:17 PM EDT us Dylan Daugherty MD LAB URINE ORDERABLES Final Resul t Performing Organization Address City/[facility] [address]/ZIP Co de Phone Number [facility] [address] [place] [address], [place] [phone] * Green urine culture tube (10/27/2024 11:37 AM EDT) Extra Tube Hold for add-ons. 10/27/2024 2:02 PM EDT [facility] Comment:Auto resulted. Urine Urine specimen obtained by clean catch procedure / Unknown Non-blood Collection / Unknown 10/27/2024 11:37 AM EDT 10/27/2024 12:17 PM EDT us Dylan Daugherty MD LAB URINE ORDERABLES Final Resul t Performing Organization Address [facility] [address]/ZIP Co de Phone Number [facility] [address] [place] [address], [place] [phone] * Culture urine (10/27/2024 11:37 AM EDT) Culture, Urine No growth 10/28/2024 11:25 AM EDT [facility] Urine Urine specimen obtained by clean catch procedure / Unknown Non-blood Collection / Unknown 10/27/2024 11:37 AM EDT 10/27/2024 12:25 PM EDT us Dylan Daugherty MD LAB MICROBIOLOGY - GENERAL ORDER COLLIN Final Result [facility] [address] [place] [address], * CT Cervical Spine wo Contrast (10/27/2024 11:17 AM EDT) Anatomical Region Laterality Modality Spine, C-spine Computed Tomogra phy 10/27/2024 11:5 0 AM EDT Impressions 10/27/2024 11:53 AM EDT Degenerative changes without acute cervical spine fracture, subluxation or significant soft tissue swelling. [id number], [id number], [id number] -------- FINAL REPORT -------- Dictated By: Alonso Stoddard Dictated Date: 10/27/2024 11:50 ET Assigned Physician: Alonso Stoddard Reviewed and Electronically Signed By: Alonso Stoddard Signed Date: 10/27/2024 11:53 ET Workstation ID: [id number] Transcribed By: Self Edit Transcribed Date: 10/27/2024 11:50 ET Narrative 10/27/2024 11:53 AM EDT INDICATION: Fall with neck pain Technique: CT scan of the cervical spine obtained without contrast. Scanner: [email or web address] 64 slice VCT Dose reduction technique: ASIR (Adaptive statistical iterative reconstruction) and/or AEC (automated exposure control) Dose: total exam DLP 1638 mGY per cm Comparison: No prior studies available for comparison. FINDINGS: Vertebral bodies: Osteopenia and multilevel degenerative changes with anterior osteophytosis. No evidence of acute fracture or subluxation. No focal lytic or sclerotic lesions. No significant bony acquired significant canal stenosis. Multilevel facet hypertrophy and neural foramina narrowing. Soft tissue: No evidence of prevertebral or paraspinal soft tissue swelling or hematoma. Other: Airway within normal limits. No cervical lymphadenopathy. Mild to moderate left-sided carotid vascular calcifications. Lung apices are clear. No significant thyroid abnormality. Procedure Note Alonso Stoddard MD - 10/27/2024 INDICATION: Fall with neck pain Technique: CT scan of the cervical spine obtained without contrast. Scanner: [email or web address] Now 64 slice VCT Dose reduction technique: ASIR (Adaptive statistical iterativereconstruction) and/or AEC (automated exposure control) Dose: total exam DLP 1638 mGY per cm Comparison: No prior studies available for comparison. FINDINGS: Vertebral bodies: Osteopenia and multilevel degenerative changes withanterior osteophytosis. No evidence of acute fracture or subluxation. Nofocal lytic or sclerotic lesions. No significant bony acquired significantcanal stenosis. Multilevel facet hypertrophy and neural foraminanarrowing. Soft tissue: No evidence of prevertebral or paraspinal soft tissueswelling or hematoma. Other: Airway within normal limits. No cervical lymphadenopathy. Mild tomoderate left-sided carotid vascular calcifications. Lung apices areclear. No significant thyroid abnormality. IMPRESSION: Degenerative changes without acute cervical spine fracture, subluxation orsignificant soft tissue swelling. [id number], [id number], [id number] -------- FINAL REPORT -------- Dictated By: Alonso Stoddard Dictated Date: 10/27/2024 11:50 ET Assigned Physician: Alonso Stoddard Reviewed and Electronically Signed By: Alonso Stoddard Signed Date: 10/27/2024 11:53 ET Workstation ID: [id number] Transcribed By: Self Edit Transcribed Date: 10/27/2024 11:50 ET Dylan Daugherty MD [facility] CT PROCEDURES Final Result * CT Head wo Contrast (10/27/2024 11:17 AM EDT) Anatomical Region Laterality Modality Head and Neck Computed Tomogra phy 10/27/2024 11:4 8 AM EDT Impressions 10/27/2024 11:50 AM EDT No evidence of acute intracranial process on noncontrast head CT. Atrophy and age-related changes. Soft tissue hematoma within the right posterior parietal occipital region. -------- FINAL REPORT -------- Dictated By: Alonso Stoddard Dictated Date: 10/27/2024 11:48 ET Assigned Physician: Alonso Stoddard Reviewed and Electronically Signed By: Alonso Stoddard Signed Date: 10/27/2024 11:50 ET Workstation ID: [id number] Transcribed By: Self Edit Transcribed Date: 10/27/2024 11:48 ET Narrative 10/27/2024 11:50 AM EDT INDICATION: Head trauma Technique: Axial images were obtained from the skull base to the vertex without contrast enhancement. Coronal and sagittal reformats obtained. Scanner: [id number] 64 slice VCT Dose reduction technique: ASIR (Adaptive statistical iterative reconstruction) Dose: total exam DLP 1638 mGY per cm Study mildly limited secondary to motion. Comparison: No prior studies available for comparison. FINDINGS: Intracranial contents: No acute intracranial hemorrhage, midline shift or mass-effect. The ventricles, sulci, sylvian fissures and basilar cisterns are symmetrically enlarged most consistent with atrophy. There are no abnormal intra or extra- axial fluid collections. Bony structures/soft tissues: Bony structures are unremarkable. Right-sided parieto-occipital soft tissue hematoma measuring 5 cm x 4 cm x 1 cm. Sinuses: paranasal sinuses are clear. Procedure Note Alonso Stoddard MD - 10/27/2024 INDICATION: Head trauma Technique: Axial images were obtained from the skull base to the vertexwithout contrast enhancement. Coronal and sagittal reformats obtained. Scanner: GE LightSpeed 64 slice VCT Dose reduction technique: ASIR (Adaptive statistical iterativereconstruction) Dose: total exam DLP 1638 mGY per cm Study mildly limited secondary to motion. Comparison: No prior studies available for comparison. FINDINGS: Intracranial contents: No acute intracranial hemorrhage, midline shift ormass- effect. The ventricles, sulci, sylvian fissures and basilar cisternsare symmetrically enlarged most consistent with atrophy. There are noabnormal intra or extra-axial fluid collections. Bony structures/soft tissues: Bony structures are unremarkable.Right-sided parieto-occipital soft tissue hematoma measuring 5 cm x 4 cm x1 cm. Sinuses: paranasal sinuses are clear. IMPRESSION: No evidence of acute intracranial process on noncontrast head CT. Atrophy and age-related changes. Soft tissue hematoma within the right posterior parietal occipitalregion. -------- FINAL REPORT -------- Dictated By: Alonso Stoddard Dictated Date: 10/27/2024 11:48 ET Assigned Physician: Alonso Stoddard Reviewed and Electronically Signed By: Alonso Stoddard Signed Date: 10/27/2024 11:50 ET Workstation ID: [id number] Transcribed By: Self Edit Transcribed Date: 10/27/2024 11:48 ET Dylan Daugherty MD IMG CT PROCEDURES Final Result * Uric acid (10/27/2024 11:14 AM EDT) Pathologist [facility] Uric Acid 3.6 3.1 - 7.8 mg/dL LAB CHEMISTRY METHOD 10/27/2024 1:08 PM EDT [facility] Blood Venous blood specimen / Unknown Venipuncture / Unknown 10/27/2024 11:14 AM EDT 10/27/2024 11:29 AM EDT Jamir Ch MD LAB BLOOD ORDERABLES Final Re sult [facility] [address] [place] [address], * Thyroid stimulating hormone (10/27/2024 11:14 AM EDT) [facility] TSH 0.65 0.40 - 4.00 mcIU/mL LAB CHEMISTRY METHOD 10/27/2024 2:07 PM EDT [facility] Blood Venous blood specimen / Unknown Venipuncture / Unknown 10/27/2024 11:14 AM EDT 10/27/2024 11:29 AM EDT us Jamir Ch MD LAB BLOOD ORDERABLES Final Re sult Performing Organization Address [facility] [address]/[facility] Co de Phone Number [facility] [address] [place] [address], [place] [phone] * (ABNORMAL) Osmolality (10/27/2024 11:14 AM EDT) Osmolality Carmelina 250(L) 280 - 300 mOsm/kg LAB CHEMISTRY METHOD 10/27/2024 1:13 PM EDT [facility] Blood Venous blood specimen / Unknown Venipuncture / Unknown 10/27/2024 11:14 AM EDT 10/27/2024 11:29 AM EDT us Dylan Daugherty MD LAB BLOOD ORDERABLES Final Resul t Performing Organization Address [facility] de Phone Number [facility] [address] [place] [address], [place] [phone] * Cortisol (10/27/2024 11:14 AM EDT) Cortisol 49.8 mcg/dL LAB CHEMISTRY METHOD 10/27/2024 2:07 PM EDT [facility] Blood Venous blood specimen / Unknown Venipuncture / Unknown 10/27/2024 11:14 AM EDT 10/27/2024 11:29 AM EDT Narrative [facility] - 10/27/2024 2:07 PM EDT CORTISOL REFERENCE RANGE 8 AM SPEC: 5.0-23.0 mcg/dL 4 PM SPEC: 3.0-16.0 mcg/dL 8 PM SPEC: <5.0 mcg/dL us Jamir Ch MD LAB BLOOD ORDERABLES Final Re sult Performing Organization Address [facility] [address]/[facility] Co de Phone Number [facility] [address] [place] [address], [place] [phone] * (ABNORMAL) POCT Glucose, blood (10/27/2024 11:13 AM EDT) [facility] Glucose POCT 115(H) 70 - 100 mg/dL 10/27/2024 11:13 AM EDT [facility] Blood Capillary blood specimen / Unknown 10/27/2024 11:13 AM EDT 10/27/2024 11:18 AM EDT Dylan Daugherty MD LAB POINT OF CARE TE ST DOCKED DEVICE UNSOLICITED RESULTS Final Result [facility]) [facility] [address] [place] [address], [place] [phone] * ECG 12 lead (09/28/2024 5:04 PM EDT) Only the most recent of2 resultswithin the time period is included. [facility] Ventricular Rate ECG 68 BPM GEMUSE Atrial Rate 68 BPM GEMUSE P-R Interval 156 ms GEMUSE QRS Duration 82 ms GEMUSE Q-T Interval 420 ms GEMUSE QTc 446 ms GEMUSE P Wave Baggs 58 degrees GEMUSE R Baggs 11 degrees GEMUSE T Baggs 42 degrees GEMUSE ECG Interpretation Normal sinus rhythm Normal ECG When compared with ECG of 28-SEP-2024 14:57, No significant change was found Confirmed by DYLAN MELENDEZ ([id number]) on 09/28/2024 7:01:45 PM GEMUSE 09/28/2024 5:04 PM EDT 09/28/2024 7:01 PM EDT us Alexander Olmedo MD ECG ORDERABLES Final Result GEMUSE * B-type natriuretic peptide (09/28/2024 3:21 PM EDT) [facility] BNP 38 <=100 pcg/mL LAB CHEMISTRY METHOD 09/28/2024 5:01 PM EDT [facility] Blood Venous blood specimen / Unknown Venipuncture / Unknown 09/28/2024 3:21 PM EDT 09/28/2024 4:13 PM EDT Alexander Olmedo MD LAB BLOOD ORDERABLES Final Res ult Performing Organization Address City/[facility] [address]/ZIP Co de Phone Number [facility] [address] [place] [address], [place] [phone] * Lipase (09/28/2024 3:21 PM EDT) Pathologist [facility] Lipase 39 13 - 75 unit/L LAB CHEMISTRY METHOD 09/28/2024 4:48 PM EDT [facility] Blood Venous blood specimen / Unknown Venipuncture / Unknown 09/28/2024 3:21 PM EDT 09/28/2024 4:13 PM EDT Alexander Olmedo MD LAB BLOOD ORDERABLES Final Res ult Performing Organization Address City/[facility] [address]/ZIP Co de Phone Number [facility] [address] [place] [address], [place] [phone] * (ABNORMAL) Comprehensive metabolic panel (09/28/2024 3:21 PM EDT) Pathologist [facility] Sodium 135 133 - 145 mmol/L LAB CHEMISTRY METHOD 09/28/2024 4:48 PM EDT [facility] Potassium 4.0 3.5 - 5.5 mmol/L LAB CHEMISTRY METHOD 09/28/2024 4:48 PM EDT [facility] Chloride 102 96 - 110 mmol/L LAB CHEMISTRY METHOD 09/28/2024 4:48 PM EDT [facility] CO2 27 21 - 32 mmol/L LAB CHEMISTRY METHOD 09/28/2024 4:48 PM EDT [facility] Anion Gap 6 3 - 11 LAB CHEMISTRY METHOD 09/28/2024 4:48 PM [facility] Glucose 89 70 - 100 mg/dL LAB CHEMISTRY METHOD 09/28/2024 4:48 PM [facility] BUN 24 5 - 25 mg/dL LAB CHEMISTRY METHOD 09/28/2024 4:48 PM [facility] Creatinine 1.33(H) 0.50 - 1.10 mg/dL LAB CHEMISTRY METHOD 09/28/2024 4:48 PM [facility] eGFR 40(L) >=60 mL/min/1. 73m2 LAB CHEMISTRY METHOD 09/28/2024 4:48 PM [facility] Comment:Calculation based on the Chronic Kidney Disease Epidemiology Collaboration (CKD-EPI) equation refit without adjustment for race. BUN/Creatinine Ratio 18.0 LAB CHEMISTRY METHOD 09/28/2024 4:48 PM [facility] Calcium 9.3 8.5 - 10.5 mg/dL LAB CHEMISTRY METHOD 09/28/2024 4:48 PM [facility] AST (SGOT) 18 10 - 42 unit/L LAB CHEMISTRY METHOD 09/28/2024 4:48 PM [facility] ALT (SGPT) 22 10 - 60 unit/L LAB CHEMISTRY METHOD 09/28/2024 4:48 PM [facility] Alkaline Phosphatase 89 42 - 121 unit/L LAB CHEMISTRY METHOD 09/28/2024 4:48 PM [facility] Total Protein 7.1 6.0 - 8.0 g/dL LAB CHEMISTRY METHOD 09/28/2024 4:48 PM [facility] Albumin 3.5 3.2 - 5.0 g/dL LAB CHEMISTRY METHOD 09/28/2024 4:48 PM [facility] Total Bilirubin 0.5 0.0 - 1.4 mg/dL LAB CHEMISTRY METHOD 09/28/2024 4:48 PM [facility] Blood Venous blood specimen / Unknown Venipuncture / Unknown 09/28/2024 3:21 PM EDT 09/28/2024 4:13 PM EDT us Alexander Olmedo MD LAB BLOOD ORDERABLES Final Res ult [facility] [address] [place] [address], from Last 3 Months Insurance [facility] [employer] Advance Directives * Full Code - Default (Latest Code Status on File) Date Activated Date Inactivated Comments 10/27/2024 1:07 PM 10/30/2024 1:16 PM This is orde r is used when code status has not been discussed with the patient, or code status is otherwise unknown/unconfirmed To update the patient's code status, place a code status order. Do not modify or discontinue any currently active code status orders. Care Teams Director Of Partner Marketing Relationship Specialty Start Date End Date Yelena García MD [address] [place], [place] PCP - General Internal Medicine 09/28/24
--- OUTSIDE RECORDS SUMMARY | 2024-11-04 07:48 | XMS_ITS | Clinical Summary ---
Author Organization [facility] Address [address] [address] Phone Care Team Providers Care Fire Management Technician Name Role Phone Yelena García MD Primary Care Provider Social History Tobacco Use Types Packs/Day Years Used Date Smoking Tobacco: Never Assessed Comments Unknown Sex and Gender Information Value Date Recorded Sex Assigned at Not on file Legal Sex Female 9:30 AM EDT Gender Identity Not on file Sexual Orientation Not on file Plan of Treatment Upcoming Encounters Date Type Department Care Team (Late st Contact Info) Description 11/30/2024 2:15 PM EDT Office Visit [facility] [address] [phone] Kirti Quiles ARNP [address] [phone] Health Maintenance Due Date Last Done Comments Pneumococcal Vaccine: 50+ Ye ars (1 of 2 - PCV) 11/02/1959 Influenza Vaccine (#1) 2024 Hepatitis B Vaccine Aged Out No longe r eligible based on patient's age to complete this topic Insurance [employer] Care Teams Fire Management Technician Relationship Specialty Start Date End Date Yelena García MD [address] [place] [address] PCP - General Internal Medicine 10/31/24
[2024-11-04 11:30] LABS: Alanine Aminotransferase 17 U/L (0-31); Albumin Level 3.6 g/dL (3.5-5.0); Alkaline Phosphatase 74 U/L (39-117); Anion Gap 10 (12-20); Aspartate Amino Transferase 24 U/L (5-31); Blood Urea Nitrogen 20 mg/dL (9-16); Calcium 9.0 mg/dL (8.4-10.2); Carbon Dioxide 30 mmol/L (22-29); Chloride 106 mmol/L (96-108); Cholesterol 146 mg/dL (<200); Estimated Glomerular Filt Rate > 60; HDL Cholesterol 42 mg/dL (>40); Potassium 4.7 mmol/L (3.3-5.1); Sodium 141 mmol/L (135-145); Total Protein 6.8 g/dL (6.5-8.0); Triglycerides 64 mg/dL (<150)
== END 2024-11-04 07:46 | disposition home or self-care (01) ==
LOC: HO.HMGCLDS 07:45
PROVIDERS: PCP Internal Medicine; Visit Provider Internal Medicine
DX: I10 Essential (primary) hypertension (principal); K21.9 Gastro-esophageal reflux disease without esophagitis; Z68.24 Body mass index [BMI] 24.0-24.9, adult
CPT/HCPCS: 36415; 80053; 80061